=== PATIENT | male | born 1980 | race Caucasian/White ===

== ENCOUNTER 2018-06-27 18:23 | Emergency (ER) | payer MEDICAID ==
--- NOTE | 2018-06-27 18:44 | ERPHSYRPT ---
- History of Present Illness Time Seen by Provider: 06/27/18 18:40 Source: patient, EMS Exam Limitations: clinical condition Physician History: pt is a 37 year old male found minimally responsive in parking lot of gas station and ems brought to ED; had trauma yesterday per pt and his tet is UTD at one year ; pain head , neck and right shoudler; is very somnolent but denies using drugs although bystanders believe he took a white powder at scene; right shoulder tender but full ROM all ext otw and abd chest are nontender; chest clear no focal neuro findings. pt now also having right abd pain and tendrness and right pelvis /hip tender; Timing/Duration: today Severity: moderate Associated Symptoms: denies symptoms Allergies/Adverse Reactions: ketorolac tromethamine [From Toradol] Allergy (Verified 06/27/18 19:01) SWEAT Home Medications: No Home Meds [No Home Meds] 09/16/12 [History] Hx Tetanus, Diphtheria Vaccination/Date Given: Yes (UP TO DATE) Hx Influenza Vaccination/Date Given: No Hx Pneumococcal Vaccination/Date Given: No - Review of Systems Constitutional: Other (somnolense now), No Fever, No Chills Eyes: No Symptoms Ears, Nose, & Throat: No Symptoms Respiratory: No Cough, No Dyspnea Cardiac: No Chest Pain, No Edema, No Syncope Abdominal/Gastrointestinal: No Abdominal Pain, No Nausea, No Vomiting, No Diarrhea Genitourinary Symptoms: No Dysuria Musculoskeletal: Neck Pain, Fall, Injury, Joint Pain (right shoudler), No Back Pain Skin: No Rash Neurological: Other (pain in head ), No Dizziness, No Focal Weakness, No Sensory Changes Psychological: No Symptoms Endocrine: No Symptoms All Other Systems: Reviewed and Negative - Past Medical History Pertinent Past Medical History: No Neurological History: No Pertinent History ENT History: No Pertinent History Cardiac History: No Pertinent History Respiratory History: No Pertinent History Endocrine Medical History: No Pertinent History Musculoskeletal History: No Pertinent History, Fractures GI Medical History: Other History: Other Psycho-Social History: Attention Deficit Disorder Male Reproductive Disorders: No Pertinent History Other Medical History: fractured ankle - Past Surgical History Past Surgical History: Yes Neuro Surgical History: No Pertinent History Cardiac: No Pertinent History Respiratory: No Pertinent History Gastrointestinal: No Pertinent History, Hernia Repair Genitourinary: No Pertinent History Musculoskeletal: No Pertinent History Male Surgical History: No Pertinent History Other Surgical History: HERNIA - Social History Smoking Status: Current every day smoker How long have you smoked: 20y Exposure to second hand smoke: Yes Drug Use: none Patient Lives Alone: No - Nursing Vital Signs Nursing Vital Signs: Initial Vital Signs Pulse Rate 90 06/27/18 18:32 Respiratory Rate 16 06/27/18 18:32 Blood Pressure 119/72 06/27/18 18:32 O2 Sat by Pulse Oximetry 100 06/27/18 18:32 Pain Scale Pain Intensity 8 - Physical Exam General Appearance: no apparent distress, alert Eye Exam: PERRL/EOMI, eyes nml inspection Ears, Nose, Throat Exam: normal ENT inspection, TMs normal, pharynx normal, moist mucous membranes Neck Exam: normal inspection, non-tender, supple, full range of motion Respiratory Exam: normal breath sounds, lungs clear, airway intact, No respiratory distress Cardiovascular Exam: regular rate/rhythm, normal heart sounds, normal peripheral pulses Gastrointestinal/Abdomen Exam: soft, normal bowel sounds, tenderness, guarding, No distention, No mass, No rebound Back Exam: normal inspection, normal range of motion, No CVA tenderness, No vertebral tenderness Extremity Exam: normal inspection, normal range of motion, pelvis stable, tenderness (right shoudler right hip) Neurologic Exam: cooperative, normal mood/affect, nml cerebellar function, nml station & gait, sensation nml, No motor deficits Skin Exam: normal color, warm, dry, No rash Lymphatic Exam: No adenopathy SpO2 Interpretation: normal SpO2: 100 O2 Delivery: Room Air - Course Nursing assessment & vital signs reviewed: Yes EKG Interpreted by Me: Sinus Rhythm, NORMAL AXIS, NORMAL INTERVALS, Non- specific ST Changes - Radiology Exams Chest X-ray Interpretation: Reviewed by me, No Pneumothorax, No Infiltrates, Other ( granulomata) Right Hip X-ray Interpretation: Reviewed by me, Other (no obvious fracture - slight symphysis malignment without signif diastasis) Right Shoulder X-ray Interpretation: Reviewed by me, Other (no obvious major fracture ) - CT Exams Head CT Interpretation: Tele-radiologist Report, No/Intracranial Hemorrhag Cervical Spine CT Interpretation: Tele-radiologist Report, Other (old C 7 sarahy shovelers - healed per rad reading and nontender on exam ) Abdomen/Pelvis CT Interpretation: Tele-radiologist Report, No appendicitis Ordered Tests: Active Orders 24 hr Category Date Time Status Die Out Worker STAT Care 06/27/18 18:47 Active Cath for Specimen-Straight STAT Care 06/27/18 18:49 Active EKG-ER Only STAT Care 06/27/18 18:46 Active IV Insertion STAT Care 06/27/18 18:46 Active ABDOMEN AND PELVIS W/0 CONTRAS [CT] Stat Exams 06/27/18 18:58 Taken CERVICAL SPINE WO CONTRAST [CT] Stat Exams 06/27/18 18:44 Taken CHEST 1 VIEW (PORTABLE) Stat Exams 06/27/18 18:48 Taken HEAD WITHOUT CONTRAST [CT] Stat Exams 06/27/18 18:45 Taken HIP UNI (2V) INCL PEL IF DONE Stat Exams 06/27/18 18:59 Taken SHOULDER Stat Exams 06/27/18 18:45 Taken ACETAMINOPHEN Stat Lab 06/27/18 19:00 Completed AMYLASE Stat Lab 06/27/18 19:00 Completed CBC W DIFF Stat Lab 06/27/18 19:00 Completed CMP Stat Lab 06/27/18 19:00 Completed ETHYL ALCOHOL Stat Lab 06/27/18 19:00 Completed LIPASE Stat Lab 06/27/18 19:00 Completed Lactic Acid Stat Lab 06/27/18 19:00 Results SALICYLATE Stat Lab 06/27/18 19:00 Completed TROPONIN Q3H Lab 06/27/18 19:00 Completed TROPONIN Q3H Lab 06/27/18 22:00 Ordered TROPONIN Q3H Lab 06/28/18 01:00 Ordered TROPONIN Q3H Lab 06/28/18 04:00 Ordered TROPONIN Q3H Lab 06/28/18 07:00 Ordered TSH [TSH, 3RD Generation] Stat Lab 06/27/18 19:00 Completed UA W/RFX UR CULTURE Stat Lab 06/27/18 18:55 Completed Urine Triage Profile Stat Lab 06/27/18 18:55 Completed Medication Summary Generic Name Dose Route Start Last Admin Trade Name Freq PRN Reason Stop Dose Admin Sodium Chloride 1,000 mls @ 999 mls/hr 06/27/18 20:32 06/27/18 20:54 Sodium Chloride 0.9% 1000 Ml IV 06/27/18 21:32 999 mls/hr .Q1H1M STA Administration Discontinued Medications Generic Name Dose Route Start Last Admin Trade Name Freq PRN Reason Stop Dose Admin Diphenhydramine HCl 25 mg 06/27/18 19:06 06/27/18 19:18 Benadryl 50 Mg/Ml IV 06/27/18 19:07 25 mg STAT ONE Administration Diphenhydramine HCl Confirm 06/27/18 19:16 Benadryl 50 Mg/Ml Administered 06/27/18 19:17 Dose 50 mg .ROUTE .STK-MED ONE Sodium Chloride 1,000 mls @ 999 mls/hr 06/27/18 18:46 06/27/18 19:12 Sodium Chloride 0.9% 1000 Ml IV 06/27/18 19:46 999 mls/hr .Q1H1M STA Administration Sodium Chloride Confirm 06/27/18 19:07 Sodium Chloride 0.9% 1000 Ml Administered 06/27/18 19:08 Dose 1,000 mls @ ud .ROUTE .STK-MED ONE Sodium Chloride Confirm 06/27/18 20:33 Sodium Chloride 0.9% 1000 Ml Administered 06/27/18 20:34 Dose 1,000 mls @ ud .ROUTE .STK-MED ONE Lorazepam 1 mg 06/27/18 19:06 06/27/18 19:20 Ativan 1 Mg PO 06/27/18 19:07 1 mg STAT ONE Administration Lorazepam Confirm 06/27/18 19:17 Ativan 1 Mg Administered 06/27/18 19:18 Dose 1 mg .ROUTE .STK-MED ONE Morphine Sulfate 4 mg 06/27/18 19:06 06/27/18 19:19 Morphine Sulfate 4 Mg Inj IV 06/27/18 19:07 4 mg STAT ONE Administration Morphine Sulfate Confirm 06/27/18 19:16 Morphine Sulfate 4 Mg Inj Administered 06/27/18 19:17 Dose 4 mg .ROUTE .STK-MED ONE Morphine Sulfate 4 mg 06/27/18 20:36 06/27/18 20:53 Morphine Sulfate 4 Mg Inj IV 06/27/18 20:37 4 mg STAT ONE Administration Morphine Sulfate Confirm 06/27/18 20:51 Morphine Sulfate 4 Mg Inj Administered 06/27/18 20:52 Dose 4 mg .ROUTE .STK-MED ONE Ondansetron HCl 4 mg 06/27/18 18:46 06/27/18 19:08 Zofran 4 Mg/2 Ml Vial IV 06/27/18 18:47 4 mg STAT ONE Administration Ondansetron HCl Confirm 06/27/18 19:07 Zofran 4 Mg/2 Ml Vial Administered 06/27/18 19:08 Dose 4 mg .ROUTE .STK-MED ONE Thiamine HCl 100 mg 06/27/18 18:46 06/27/18 19:10 Thiamine 200 Mg/2 Ml IV 06/27/18 18:47 100 mg STAT ONE Administration Thiamine HCl Confirm 06/27/18 19:07 Thiamine 200 Mg/2 Ml Administered 06/27/18 19:08 Dose 200 mg .ROUTE .STK-MED ONE Lab/Rad Data: Laboratory Result Diagrams 06/27/18 19:00 06/27/18 19:00 Laboratory Results 06/27/18 06/27/18 06/27/18 Range/Units 19:00 19:00 19:00 WBC (4.0-10.5) K/mm3 RBC (4.1-5.6) M/mm3 Hgb (12.5-18.0) gm/dl Hct (42-50) % MCV (78-100) fl MCH (26-32) pg MCHC (32-36) g/dl RDW (11.5-14.0) % Plt Count (150-450) K/mm3 MPV (6-9.5) fl Gran % (36.0-66.0) % Eos # (Auto) (0-0.5) Absolute Lymphs (auto) (1.0-4.6) Absolute Monos (auto) (0.0-1.3) Lymphocytes % (24.0-44.0) % Monocytes % (0.0-12.0) % Eosinophils % (0.00-5.0) % Basophils % (0.0-0.4) % Absolute Granulocytes (1.4-6.9) Basophils # (0-0.4) Sodium 140 (137-145) mmol/L Potassium 4.2 (3.5-5.1) mmol/L Chloride 104 (98-107) mmol/L Carbon Dioxide 27 (22-30) mmol/L Anion Gap 13.2 (5-15) MEQ/L BUN 10 (9-20) mg/dL Creatinine 0.96 (0.66-1.25) mg/dL Estimated GFR > 60.0 ML/MIN Glucose 122 H (74-106) mg/dL Lactic Acid (0.4-2.0) Calcium 9.1 (8.4-10.2) mg/dL Total Bilirubin 0.60 (0.2-1.3) mg/dL AST 27 (17-59) U/L ALT 22 (0-50) U/L Alkaline Phosphatase 76 (38-126) U/L Troponin I < 0.012 (0.000-0.034) ng/mL Serum Total Protein 7.4 (6.3-8.2) g/dL Albumin 4.1 (3.5-5.0) g/dL Amylase 56 (30-110) U/L Lipase 47 (23-300) U/L TSH 3rd Generation 1.020 (0.47-4.68) mIU/L Urine Color (YELLOW) Urine Appearance (CLEAR) Urine pH (5-6) Ur Specific [place] (1.005-1.025) Urine Protein (Negative) Urine Ketones (NEGATIVE) Urine Blood (0-5) Kiran/ul Urine Nitrite (NEGATIVE) Urine Bilirubin (NEGATIVE) Urine Urobilinogen (0-1) mg/dL Ur Leukocyte Esterase (NEGATIVE) Urine WBC (Auto) (0-5) /HPF Urine RBC (Auto) (0-2) /HPF U Hyaline Cast (Auto) (0-2) /LPF U Epithel Cells (Auto) (FEW) /HPF Urine Bacteria (Auto) (NEGATIVE) /HPF Urine Mucus (Auto) (NEGATIVE) /HPF Urine Culture Reflexed (NO) Urine Glucose (NEGATIVE) mg/dL Salicylates < 1.0 L (2-20) mg/dL Urine Opiates Level (NEGATIVE) Ur Methadone (NEGATIVE) Acetaminophen < 10 L (10-30) ug/ml Urine Barbiturates (NEGATIVE) Ur Phencyclidine (PCP) (NEGATIVE) Urine Amphetamine (NEGATIVE) U Benzodiazepine Level (NEGATIVE) Urine Cocaine (NEGATIVE) Urine Marijuana (THC) (NEGATIVE) Ethyl Alcohol < 10 (0-10) mg/dL 06/27/18 06/27/18 06/27/18 Range/Units 19:00 19:00 18:55 WBC 6.7 (4.0-10.5) K/mm3 RBC 5.53 (4.1-5.6) M/mm3 Hgb 16.2 (12.5-18.0) gm/dl Hct 48.3 (42-50) % MCV 87.3 (78-100) fl MCH 29.3 (26-32) pg MCHC 33.5 (32-36) g/dl RDW 14.0 (11.5-14.0) % Plt Count 149 L (150-450) K/mm3 MPV 10.8 H (6-9.5) fl Gran % 58.5 (36.0-66.0) % Eos # (Auto) 0.14 (0-0.5) Absolute Lymphs (auto) 1.87 (1.0-4.6) Absolute Monos (auto) 0.68 (0.0-1.3) Lymphocytes % 28.1 (24.0-44.0) % Monocytes % 10.2 (0.0-12.0) % Eosinophils % 2.1 (0.00-5.0) % Basophils % 1.1 (0.0-0.4) % Absolute Granulocytes 3.89 (1.4-6.9) Basophils # 0.07 (0-0.4) Sodium (137-145) mmol/L Potassium (3.5-5.1) mmol/L Chloride (98-107) mmol/L Carbon Dioxide (22-30) mmol/L Anion Gap (5-15) MEQ/L BUN (9-20) mg/dL Creatinine (0.66-1.25) mg/dL Estimated GFR ML/MIN Glucose (74-106) mg/dL Lactic Acid 1.9 (0.4-2.0) Calcium (8.4-10.2) mg/dL Total Bilirubin (0.2-1.3) mg/dL AST (17-59) U/L ALT (0-50) U/L Alkaline Phosphatase (38-126) U/L Troponin I (0.000-0.034) ng/mL Serum Total Protein (6.3-8.2) g/dL Albumin (3.5-5.0) g/dL Amylase (30-110) U/L Lipase (23-300) U/L TSH 3rd Generation (0.47-4.68) mIU/L Urine Color (YELLOW) Urine Appearance (CLEAR) Urine pH (5-6) Ur Specific [place] (1.005-1.025) Urine Protein (Negative) Urine Ketones (NEGATIVE) Urine Blood (0-5) Kiran/ul Urine Nitrite (NEGATIVE) Urine Bilirubin (NEGATIVE) Urine Urobilinogen (0-1) mg/dL Ur Leukocyte Esterase (NEGATIVE) Urine WBC (Auto) (0-5) /HPF Urine RBC (Auto) (0-2) /HPF U Hyaline Cast (Auto) (0-2) /LPF U Epithel Cells (Auto) (FEW) /HPF Urine Bacteria (Auto) (NEGATIVE) /HPF Urine Mucus (Auto) (NEGATIVE) /HPF Urine Culture Reflexed (NO) Urine Glucose (NEGATIVE) mg/dL Salicylates (2-20) mg/dL Urine Opiates Level NEGATIVE (NEGATIVE) Ur Methadone NEGATIVE (NEGATIVE) Acetaminophen (10-30) ug/ml Urine Barbiturates NEGATIVE (NEGATIVE) Ur Phencyclidine (PCP) NEGATIVE (NEGATIVE) Urine Amphetamine POSITIVE (NEGATIVE) U Benzodiazepine Level POSITIVE (NEGATIVE) Urine Cocaine POSITIVE (NEGATIVE) Urine Marijuana (THC) POSITIVE (NEGATIVE) Ethyl Alcohol (0-10) mg/dL 06/27/18 Range/Units 18:55 WBC (4.0-10.5) K/mm3 RBC (4.1-5.6) M/mm3 Hgb (12.5-18.0) gm/dl Hct (42-50) % MCV (78-100) fl MCH (26-32) pg MCHC (32-36) g/dl RDW (11.5-14.0) % Plt Count (150-450) K/mm3 MPV (6-9.5) fl Gran % (36.0-66.0) % Eos # (Auto) (0-0.5) Absolute Lymphs (auto) (1.0-4.6) Absolute Monos (auto) (0.0-1.3) Lymphocytes % (24.0-44.0) % Monocytes % (0.0-12.0) % Eosinophils % (0.00-5.0) % Basophils % (0.0-0.4) % Absolute Granulocytes (1.4-6.9) Basophils # (0-0.4) Sodium (137-145) mmol/L Potassium (3.5-5.1) mmol/L Chloride (98-107) mmol/L Carbon Dioxide (22-30) mmol/L Anion Gap (5-15) MEQ/L BUN (9-20) mg/dL Creatinine (0.66-1.25) mg/dL Estimated GFR ML/MIN Glucose (74-106) mg/dL Lactic Acid (0.4-2.0) Calcium (8.4-10.2) mg/dL Total Bilirubin (0.2-1.3) mg/dL AST (17-59) U/L ALT (0-50) U/L Alkaline Phosphatase (38-126) U/L Troponin I (0.000-0.034) ng/mL Serum Total Protein (6.3-8.2) g/dL Albumin (3.5-5.0) g/dL Amylase (30-110) U/L Lipase (23-300) U/L TSH 3rd Generation (0.47-4.68) mIU/L Urine Color YELLOW (YELLOW) Urine Appearance SLIGHTLY CLOUDY (CLEAR) Urine pH 7.0 (5-6) Ur Specific [place] 1.018 (1.005-1.025) Urine Protein 100 (Negative) Urine Ketones TRACE (NEGATIVE) Urine Blood NEGATIVE (0-5) Kiran/ul Urine Nitrite NEGATIVE (NEGATIVE) Urine Bilirubin NEGATIVE (NEGATIVE) Urine Urobilinogen 2 (0-1) mg/dL Ur Leukocyte Esterase NEGATIVE (NEGATIVE) Urine WBC (Auto) 0-2 (0-5) /HPF Urine RBC (Auto) NONE (0-2) /HPF U Hyaline Cast (Auto) 3-5 (0-2) /LPF U Epithel Cells (Auto) NONE (FEW) /HPF Urine Bacteria (Auto) NONE (NEGATIVE) /HPF Urine Mucus (Auto) SLIGHT (NEGATIVE) /HPF Urine Culture Reflexed NO (NO) Urine Glucose NEGATIVE (NEGATIVE) mg/dL Salicylates (2-20) mg/dL Urine Opiates Level (NEGATIVE) Ur Methadone (NEGATIVE) Acetaminophen (10-30) ug/ml Urine Barbiturates (NEGATIVE) Ur Phencyclidine (PCP) (NEGATIVE) Urine Amphetamine (NEGATIVE) U Benzodiazepine Level (NEGATIVE) Urine Cocaine (NEGATIVE) Urine Marijuana (THC) (NEGATIVE) Ethyl Alcohol (0-10) mg/dL - Progress Progress: improved, re-examined Progress Note: 06/27/18 19:04 pt reported to be aggitated at scene by EMS and had to be given 4 mg versed to control- now he is much more alert but having pain as in exam, and felling very nervous per pt; will give mpain meds and ativan; 06/27/18 20:54 pt is now completely lucid and alert without any deficits; discussed findings and pending rad overreads for shoudler and hip / pelvis with pt and family and that we would advise admission with obs ; pt declines and has the capacity at this point to make that choice - he understands that undetected pathology could still be evolving even with neg CTs and will f/u PCPs and return if furhter symptoms of concern meantimes; Counseled pt/family regarding: drug and/or alcohol abuse, lab results, diagnosis , need for follow-up, rad results - Departure Time of Disposition: 21:01 Departure Disposition: Home Clinical Impression: drug use/exposure with resolved altered , right shoulder ligamentous injury, pelvic ligamentous injury, Concussion Condition: Good Critical Care Time: No Referrals: [facility] [COURTESY STAFF] - Instructions: Cocaine Use Disorder, Drug Abuse and Drug Addiction (DC), Marijuana Use and Addiction (DC), Drug Abuse Treatment, Concussion, Adult (DC), Rotator Cuff Injury (DC), Pelvic Fracture (DC) Additional Instructions: final x-ray reading will be tomorrow by radiologist. follow head injury precautions and advance diet slowly followup with your dr for right shoulder and pelvis injuries - use sling - return meantime if any concerns meantime - also consider drug treatment /rehab and avoid further exposures to these environments where that could occur as it is a serious threat to your health.
[2018-06-27 18:46] VITALS: O2SAT 100
[2018-06-27] MEDS ORDERED: Zofran 4 MG/2 ML VIAL IV ONE (18:46)
[2018-06-27] MEDS ORDERED: THIAMINE 200 MG/2 ML IV ONE (18:46)
[2018-06-27] MEDS ORDERED: Sodium Chloride 0.9% 1000 ML 1,000 ML IV STA ×2 (18:46→20:32)
[2018-06-27] MEDS ORDERED: BENADRYL 50 MG/ML IV ONE (19:06)
[2018-06-27] MEDS ORDERED: MORPHINE SULFATE 4 MG INJ IV ONE ×2 (19:06→20:36)
[2018-06-27] MEDS ORDERED: Ativan 1 MG PO ONE (19:06)
[2018-06-27] MEDS ORDERED: Zofran 4 MG/2 ML VIAL ONE (19:07)
[2018-06-27] MEDS ORDERED: Sodium Chloride 0.9% 1000 ML 1,000 ML ONE ×2 (19:07→20:33)
[2018-06-27] MEDS ORDERED: THIAMINE 200 MG/2 ML ONE (19:07)
[2018-06-27 19:08] LABS: Lactic Acid 1.9 (0.4-2.0)
[2018-06-27 19:10] LABS: BASOPHIL % 1.1 % (0.0-0.4); Basophil (Absolute #) 0.07 (0-0.4); Eosinophil % 2.1 % (0.00-5.0); Eosinophil (Absolute #) 0.14 (0-0.5); Granulocyte Absolute (ANC) 3.89 (1.4-6.9); Granulocytes % 58.5 % (36.0-66.0); Hematocrit 48.3 % (42-50); Hemoglobin 16.2 gm/dl (12.5-18.0); Lymphocyte (Absolute #) 1.87 (1.0-4.6); Lymphocytes % 28.1 % (24.0-44.0); Mean Cell Volume 87.3 fl (78-100); Mean Corpuscular Hemoglobin 29.3 pg (26-32); Mean Corpuscular Hgb Concent. 33.5 g/dl (32-36); Mean Platelet Volume 10.8 fl (6-9.5); Monocyte (Absolute #) 0.68 (0.0-1.3); Monocytes % 10.2 % (0.0-12.0); Platelet Count 149 K/mm3 (150-450); Red Blood Count 5.53 M/mm3 (4.1-5.6); White Blood Count 6.7 K/mm3 (4.0-10.5)
[2018-06-27] MEDS ORDERED: BENADRYL 50 MG/ML ONE (19:16)
[2018-06-27] MEDS ORDERED: MORPHINE SULFATE 4 MG INJ ONE ×2 (19:16→20:51)
[2018-06-27] MEDS ORDERED: Ativan 1 MG ONE (19:17)
[2018-06-27 19:18] LABS: Appearance SLIGHTLY CLOUDY (CLEAR); Bilirubin NEGATIVE (NEGATIVE); Blood NEGATIVE Ery/ul (0-5); Glucose NEGATIVE (NEGATIVE); Ketones TRACE (NEGATIVE); Leukocyte Esterase NEGATIVE (NEGATIVE); Mucus SLIGHT /HPF (NEGATIVE); Nitrite NEGATIVE (NEGATIVE); Protein,Urine Dip 100 (Negative); Specific Gravity 1.018 (1.005-1.025); Urobilinogen 2 mg/dL (0-1); WBC 0-2 /HPF (0-5)
[2018-06-27 19:24] LABS: ACETAMINOPHEN < 10 ug/ml (10-30); ALBUMIN 4.1 g/dL (3.5-5.0); ALKALINE PHOSPHATASE 76 U/L (38-126); AMYLASE 56 U/L (30-110); ANION GAP 13.2 MEQ/L (5-15); BLOOD UREA NITROGEN 10 mg/dL (9-20); CHLORIDE 104 mmol/L (98-107); Calcium 9.1 mg/dL (8.4-10.2); Carbon Dioxide 27 mmol/L (22-30); Creatinine 1 0.96 mg/dL (0.66-1.25); ETHYL ALCOHOL < 10 mg/dL (0-10); Glucose 122 mg/dL (74-106); LIPASE 47 U/L (23-300); Potassium 4.2 mmol/L (3.5-5.1); SALICYLATE < 1.0 mg/dL (2-20); SGOT/AST 27 U/L (17-59); SGPT/ALT 22 U/L (0-50); SODIUM 140 mmol/L (137-145); Total Protein 7.4 g/dL (6.3-8.2)
[2018-06-27 19:28] LABS: Barbiturate,Urine NEGATIVE (NEGATIVE); Benzodiazepine,Urine POSITIVE (NEGATIVE); Cocaine,Urine POSITIVE (NEGATIVE); Methadone,Urine NEGATIVE (NEGATIVE); Opiate,Urine NEGATIVE (NEGATIVE); PCP,Urine NEGATIVE (NEGATIVE); THC,Urine POSITIVE (NEGATIVE)
[2018-06-27 19:42] LABS: Amphetamine,Urine POSITIVE (NEGATIVE)
[2018-06-27 22:17] VITALS: BP 137/91; PULSE 84
--- NOTE | 2018-06-28 08:44 | XRAY ---
Indication: Head injury following fall. Found unresponsive. Acute mental status change. Multiple contiguous axial images obtained through the head without contrast. Comparison: January 28, 2012. Study slightly degraded by motion artifact. Again grossly normal appearing appearing brain parenchyma, ventricles, and bony calvarium. Visualized paranasal sinuses are clear. Again partial opacification of the right mastoid air cells. Impression: Minimal motion artifact. Stable partial opacification of the right mastoid air cells presumed inflammatory. Remaining CT head without contrast exam is normal. Comment: Preliminary interpretation was made by [facility] who does not report incidental right mastoid air cell opacification. CT DI 48.95
--- NOTE | 2018-06-28 08:50 | XRAY ---
Indication: Head injury following fall. Found unresponsive. Acute mental status change. Multiple contiguous axial images obtained through the cervical spine. Sagittal and coronal reformatted images obtained. Comparison: None. Axial images negative for acute fracture, suspicious bony lesions, or spinal canal stenosis. 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 Sagittal and coronal reformatted images demonstrates normal alignment. Vertebral body heights and disc spaces maintained. No acute compression fracture, subluxation, or jumped facet. Normal-appearing craniocervical junction. Visualized noncontrasted soft tissues unremarkable. Lung apices demonstrates right apical subpleural cystic changes. Impression: 1. Old nonunited C7 spinous process fracture versus normal variant. 2. Remaining CT cervical spine is negative. Comment: Preliminary interpretation was made by [facility]. No discrepancy. CT DI 51.53
--- NOTE | 2018-06-28 08:56 | XRAY ---
Indication: Status post fall. Altered mental status. Comparison: September 18, 2012. Portable apical lordotic chest again demonstrates normal heart, lungs, and bony thorax.
--- NOTE | 2018-06-28 08:56 | XRAY ---
Indication: Abrasions. Head injury following fall. Found unresponsive. Acute mental status change. Multiple contiguous axial images obtained through the abdomen and pelvis without contrast as ordered. Comparison: CT pelvis October 11, 2006. There is mild beam artifact from patient's arms. Lung bases demonstrates mild bilateral dependent atelectasis. No infiltrate or effusion. Heart is not enlarged. Noncontrasted stomach and bowel loops appear nonobstructed. Mild descending and sigmoid diverticulosis. Also descending and sigmoid circumferential bowel wall thickening either incomplete distention versus colitis. No free fluid/air. Remaining liver, gallbladder, pancreas, spleen, adrenal glands, kidneys, ureters, bladder, and aorta appear unremarkable for noncontrast exam. Osseous structures demonstrates bilateral L5 spondylolysis without spondylolisthesis. No ventral or inguinal hernias. Impression: 1. Descending and sigmoid bowel wall thickening either incomplete distention versus colitis. 2. Incidental colonic diverticulosis and L5 spondylolysis without spondylolisthesis. Comment: Preliminary interpretation was made by [facility] who does not report above findings. CT DI 18.06
--- NOTE | 2018-06-28 08:59 | XRAY ---
Indication: Right hip pain following fall. Comparison: None Single AP pelvis and 2 views of the right hip obtained. No bony, articular, or soft tissue abnormalities.
--- NOTE | 2018-06-28 08:59 | XRAY ---
Indication: Pain following fall. Comparison: None 3 views of the right shoulder demonstrates mild AC degenerative arthropathy. No other bony, articular, or soft tissue abnormalities.
== END 2018-06-27 22:35 | disposition home or self-care (01) ==
LOC: ED 18:23
DX: F19.90 Other psychoactive substance use, unspecified, uncomplicated (principal); S49.81XA Other specified injuries of right shoulder and upper arm, initial encounter; S39.83XA Other specified injuries of pelvis, initial encounter; S06.0X9A Concussion with loss of consciousness of unspecified duration, initial encounter; R51 Headache; M25.511 Pain in right shoulder
CPT/HCPCS: 36415; 70450; 71045; 72125; 73030; 73502; 74176; 80053; 80307; 81001; 82150; 83605; 83690; 84443; 84484; 85025; 93005; 93041; 96360; 96361; 96374; 96375; 96376; 99285; G0481; P9612; J1200; J2270; J2405; A9270-GY; G0480